=== PATIENT | male | born 1980 | race Caucasian/White ===

== ENCOUNTER 2016-06-16 12:06 | Emergency (ER) | payer OTHER ==
[~2016-06-16] VITALS: Ht 200.7 cm; Wt 132.7 kg
[~2016-06-16 12:06] MED LIST: AMPHETAMINE SAL30 MG PO; CARISOPRODOL350 MG PO; CEFDINIR300 MG PO; CELECOXIB200 MG PO; CIPRODEX OTIC7.5 ML LEFT EAR; CITRATE OF MAG296 ML PO; MEDROL DOSEPAK4 MG PO; MOTRIN800 MG PO; NAPROSYN500 MG PO; OXYCODONE HCL10 MG PO; PERCOCET 10/1 TABLET; PROTONIX40 MG PO; SOMA350 M1; TRAMADOL HCL200 MG PO; ULTRAM50 MG PO; VALIUM5 MG PO; ZOFRAN4 MG PO
[2016-06-16 12:09] VITALS: BP 141/99
[2016-06-16] MEDS ORDERED: DEBROX15 ML BOTH EARS (13:58)
[2016-06-16] MEDS ORDERED: FLONASE16 G1 BOTH NARES (13:58)
[2016-06-16] MEDS ORDERED: ZYRTEC10 M2 PO (13:58)
== END 2016-06-16 14:41 | disposition home or self-care (01) ==
LOC: EME 12:06
DX: J02.9 Acute pharyngitis, unspecified (principal); J30.9 Allergic rhinitis, unspecified; H61.23 Impacted cerumen, bilateral
CPT/HCPCS: 87651 90; 99281; 99284

== ENCOUNTER 2017-09-30 17:40 | Emergency (ER) | payer OTHER ==
[~2017-09-30] VITALS: Ht 203.2 cm; Wt 129.8 kg
[~2017-09-30 17:40] MED LIST changes: +DEBROX15 ML BOTH EARS; +FLONASE16 G1 BOTH NARES; +ZYRTEC10 M2 PO
[2017-09-30] MEDS ORDERED: KEFLEX500 MG PO (19:29)
[2017-09-30 20:11] VITALS: BP 153/92
== END 2017-09-30 20:11 | disposition home or self-care (01) ==
LOC: EME 17:40
DX: S93.402A Sprain of unspecified ligament of left ankle, initial encounter (principal); L97.529 Non-pressure chronic ulcer of other part of left foot with unspecified severity; W17.2XXA Fall into hole, initial encounter; Z88.1 Allergy status to other antibiotic agents; Z88.0 Allergy status to penicillin; Z88.6 Allergy status to analgesic agent; Z88.8 Allergy status to other drugs, medicaments and biological substances
CPT/HCPCS: 73610; 73630; 99281; 99284